=== PATIENT | male | born 1960 | race Caucasian/White ===

== ENCOUNTER 2022-03-18 13:34 | Outpatient (CLI) | payer OTHER ==
--- NOTE | 2022-03-18 14:20 | XRay Report ---
CHEST 2 VIEWS INDICATION / CLINICAL INFORMATION: TB TEST. COMPARISON: None available. FINDINGS: SUPPORT DEVICES: None. HEART / MEDIASTINUM: Mild cardiomegaly. Tortuosity of thoracic aorta. LUNGS / PLEURA: There is an ill-defined opacity in the right paramediastinal region behind the medial right clavicle. The left lung appears clear. ADDITIONAL FINDINGS: No significant additional findings. IMPRESSION: 1. Ill-defined opacity in the right paramediastinal region at the level of the medial right clavicle. Recommend dedicated CT chest for further evaluation. Signer Name: Milton Abel MD Signed: 03/18/2022 2:15 PM Workstation Name: [id number]
== END 2022-03-18 13:35 | disposition home or self-care (01) ==
LOC: XRAY 13:34
PROVIDERS: ATTEND Family Medicine
DX: R76.11 Nonspecific reaction to tuberculin skin test without active tuberculosis (principal)
CPT/HCPCS: 71046